=== PATIENT | female | born 1960 | race African-American/Black ===

== ENCOUNTER 2021-02-26 05:48 | Emergency (ER) | payer OTHER ==
[~2021-02-26] VITALS: Ht 175.3 cm; Wt 105.4 kg
[2021-02-26] MEDS ORDERED: IOHEXOL-350 100 ML BOTTLE ONE (06:17)
[2021-02-26 06:31] LABS: BASOPHILS % 0.7 % (0.0-2.0); HEMATOCRIT. 32.4 % (36.0-48.0); HEMOGLOBIN. 10.3 g/dL (12.0-16.0); LYMPHOCYTES % 36.7 % (20.0-50.0); MEAN CORPUSCULAR HEMOGLOBIN 25.3 pg (28.0-32.0); MEAN CORPUSCULAR VOLUME 79.5 fL (81.0-99.0); MEAN PLATELET VOLUME 9.9 fl (7.4-10.4); MONOCYTES % 11.4 % (2.0-8.0); NEUTROPHILS % 50.2 % (40.0-76.0); PLATELET 215 x1000/uL (130-400); RED BLOOD CELL COUNT 4.08 mill/uL (4.2-5.4); RED CELL DISTRIBUTION WIDTH 14.8 % (11.6-14.6)
[2021-02-26 06:37] LABS: CHLORIDE 109 mEq/L (98-107)
[2021-02-26 06:39] LABS: PROTHROMBIN TIME 10.8 sec (9.6-11.0)
[2021-02-26 06:42] LABS: ETHANOL BLOOD < 10 mg/dL
[2021-02-26 06:44] LABS: LDL CHOLESTEROL 53 mg/dL (5-100)
[2021-02-26] MEDS ORDERED: ASPIRIN 325MG EC TABLET PO ONE (08:45)
[2021-02-26] MEDS ORDERED: ONDANSETRON HCL 4MG/2ML INJ IV PRN (14:30)
[2021-02-26] MEDS ORDERED: ACETAMINOPHEN 325MG TABLET PO PRN (14:30)
[2021-02-26] MEDS ORDERED: ENOXAPARIN 30MG/0.3ML SYR SUBCUT SCH (15:00)
[2021-02-26 17:52] VITALS: BP 115/55
[2021-02-27] MEDS ORDERED: ASPIRIN 81MG TABLET PO SCH (09:00)
== END 2021-02-26 18:24 | disposition short-term general hospital (02) ==
LOC: ER 05:48 → EDBEDREQ 12:56 → EDBEDREQTM 12:56 → EDBEDREQSVC 12:56 → CANBEDREQ 15:57 → ER 18:24
DX: I63.9 Cerebral infarction, unspecified (principal); I10 Essential (primary) hypertension; E11.9 Type 2 diabetes mellitus without complications; E11.8 Type 2 diabetes mellitus with unspecified complications; E87.8 Other disorders of electrolyte and fluid balance, not elsewhere classified; D64.9 Anemia, unspecified; E43 Unspecified severe protein-calorie malnutrition; G70.00 Myasthenia gravis without (acute) exacerbation; E66.9 Obesity, unspecified; Z79.899 Other long term (current) drug therapy; Z68.34 Body mass index [BMI] 34.0-34.9, adult; Z71.3 Dietary counseling and surveillance
CPT/HCPCS: 36415; 70450; 70496; 70498; 71045; 80053; 80320; 83036; 83605; 83721; 84443; 84484; 85025; 85610; 93005; 99291; Q9967; G0480